=== PATIENT | male | born 1990 | race Caucasian/White ===

== ENCOUNTER 2021-08-09 16:32 | Emergency (ER) | payer OTHER ==
[~2021-08-09] VITALS: Ht 167.6 cm; Wt 74.8 kg
[2021-08-09] MEDS ORDERED: LIDOCAINE HCL MPF 1% 5ML VIAL ONE (16:59)
[2021-08-09 17:38] VITALS: BP 102/65
[2021-08-09] MEDS ORDERED: TETANUS/DIPHTHERIA TOXOID [ADULT] 0.5 ML VIAL IM ONE (18:00)
[2021-08-09] MEDS ORDERED: BACITRACIN 28.4 GM OINT TP ONE (18:00)
[2021-08-09] MEDS ORDERED: BACI30OI6 TP (18:03)
== END 2021-08-09 18:16 | disposition home or self-care (01) ==
LOC: EDH 16:32
DX: S61.512A Laceration without foreign body of left wrist, initial encounter (principal); X58.XXXA Exposure to other specified factors, initial encounter; Y93.89 Activity, other specified; Y92.89 Other specified places as the place of occurrence of the external cause; Y99.8 Other external cause status
CPT/HCPCS: 12001; 73100; 90471; 90714; 99283; J3490